=== PATIENT | male | born 1960 | race Caucasian/White ===

== ENCOUNTER → 2017-04-13 | Outpatient (CLI) | payer BC ==
--- NOTE | 2017-04-14 07:14 | CT ---
EXAMINATION TYPE: CT brain w con DATE OF EXAM: 04/13/2017 COMPARISON: NONE HISTORY: Dysphonia and localized enlarged lymph nodes per order. Abnormal physical exam with neck swe lling and hoarseness per patient. CT DLP: 559.2 mGycm Automated exposure control for dose reduction was used. CONTRAST: CT scan of the head is performed with IV Contrast, patient injected with 100 mL of Omnipaque 300. FINDINGS: There is no abnormal enhancing mass or midline shift identified. The ventricles and sulci are within normal limits in size. Maria-white matter differentiation is maintained. The globes are intact and th e visualized sinuses are clear. Soft tissue density right external auditory canal is felt to reflect cerumen. IMPRESSION: No significant finding is seen to account for patient's symptoms.
--- NOTE | 2017-04-14 09:18 | CT ---
EXAMINATION TYPE: CT soft tissue neck w con DATE OF EXAM: 04/13/2017 COMPARISON: NONE HISTORY: Enlarged lymph nodes, dysphonia CT DLP: 1047.1 mGycm CONTRAST: Patient injected with 100 mL of Omnipaque 300. TECHNIQUE: Axial images at 3 mm thick sections. Reconstructed images in the coronal plane and sagitt al plane are reviewed. FINDINGS: Limited CT sections are obtained the lung apices. The lung apices appear clear. CT neck: The torus tubarius and fossa of Rosenmuller are normal. Brush Sander spaces are normal. Para nasal sinuses and mastoid air cells are clear. Dental amalgam scatter artifact is present below the m andible and maxilla. Parotid glands appear normal and symmetrical. Submandibular glands, are normal. Parapharyngeal spac es are normal. No suspicious adenopathy is evident. There are scattered small lymph nodes present in cluding the submandibular region, submental space. No enlarged lymphadenopathy is identified includin g the supraclavicular region and submandibular regions. There is some asymmetry of the hypopharynx with more fullness on the left side compared to the right. No underlying mass is identified. Direct visualization is recommended. Reference image series 3 imag e 75. Vocal cord level appear symmetrical. Subglottic airway is normal. Portion of the thyroid visualized i s normal. Osseous structures are normal.0 there are degenerative disc changes present. IMPRESSIONS: 1. Normal CT neck. Suspicious enlarged lymphadenopathy is not identified.
== END ==
LOC: RADCTMAIN 19:21
PROVIDERS: ATTEND Family Medicine
DX: R49.0 Dysphonia (principal); R59.0 Localized enlarged lymph nodes
CPT/HCPCS: 70491; 70460; Q9967

== ENCOUNTER → 2018-11-26 | Outpatient (CLI) | payer BC ==
--- NOTE | 2018-11-26 13:23 | XR ---
EXAMINATION TYPE: XR ribs LT w pa chest xray DATE OF EXAM: 11/26/2018 CLINICAL HISTORY: Chest and left-sided rib pain after fall injury from ladder 2 days ago. TECHNIQUE: Single frontal view of the chest is obtained. A frontal and oblique images of the left-shant ed ribs are acquired. COMPARISON: None FINDINGS: There is no focal air space opacity, pleural effusion, or pneumothorax seen. The cardiac silhouette size is within normal limits. The osseous structures are intact. Dedicated images the left-sided ribs show acute minimally displaced fracture involving anterolateral left ninth rib. Adjacent ribs felt intact. Overlying soft tissue unremarkable. IMPRESSION: 1. No acute cardiopulmonary process. 2. Acute minimally displaced fracture involving anterolateral left ninth rib.
== END | disposition home or self-care (01) ==
LOC: RADXRYALE 13:03
PROVIDERS: ATTEND Family Medicine
DX: S22.32XA Fracture of one rib, left side, initial encounter for closed fracture (principal)